=== PATIENT | male | born 1970 | race Caucasian/White ===

== ENCOUNTER 2024-03-15 10:06 | Emergency (ER) | payer MEDICARE, SELFPAY ==
[2024-03-15] VITALS (17 sets, daily range): BP systolic 130–187; BP diastolic 82–105; PULSE 79–117; TEMP 36.9; O2SAT 94–100; BMI 25.8
--- NOTE | 2024-03-15 10:26 | ECG_ITS ---
The [facility] Test Date: 2024-03-15 Pat Name: MARBELLA ANGELES Department: Room: - Gender: Male [employer]: : 1970 Requested By: [id number] Order Number: [id number] Reading MD: TALON VALLADARES Measurements Intervals [place] Rate: 90 P: 72 MO: 172 QRS: 74 QRSD: 100 T: 46 QT: 346 QTc: 394 Interpretive Statements 1100 Sinus rhythm 9110 normal ECG No previous ECG available for comparison Electronically Signed On 03-15-2024 20:21:03 EST by TALON VALLADARES
--- NOTE | 2024-03-15 10:26 | XR_ITS ---
The [address] [address] Patient Name: MARBELLA ANGELES MRN: [id number] date: 1970 Sex: M Assigned Patient Location: ER Current Patient Location: ED.MAIN Accession/Order Number: [id number] Exam Date: 03/15/2024 10:50 Report Date: 03/15/2024 11:46 At the request of: [facility] Procedure: XR chest 2V EXAMINATION: XR chest 2V HISTORY: CP , shortness of breath COMPARISON: No relevant comparison available. FINDINGS: LUNGS: No significant pulmonary parenchymal abnormalities. VASCULATURE: No increased pulmonary vasculature. PLEURA: No pneumothorax, effusion, or pleural thickening. CARDIAC: No cardiomegaly or cardiac silhouette abnormality. MEDIASTINUM: No visible mass or adenopathy. BONES: No fracture or visible bone lesion. OTHER: Negative. XR/XR chest 2V IMPRESSION: 1. No acute cardiopulmonary process. Electronically authenticated by: CARMEN COLEMAN Date: 03/15/2024 11:46
--- NOTE | 2024-03-15 10:29 | ED_ITS ---
HPI HPI - General Adult General Chief complaint: Chest Pain Stated complaint: FEVER, CHEST PAIN, R FLANK PAIN Time Seen by Provider: 03/15/24 10:26 Source: patient Mode of arrival: walk-in History of Present Illness HPI narrative: Patient is a 54-year-old male who is coming to the ER with multiple complaints. Patient has left and right sided chest pain and shortness for 2 weeks which has been fairly persistent. Patient also has a small rash to the right lateral chest wall this been there for 2 weeks. Patient has no nausea, vomiting. Patient states the pain is more to the right upper quadrant and midepigastric area. Patient has no cardiac history. Patient states his only significant medical history at this time is tobacco abuse. Patient has no acid reflux history. Patient states he smokes 1.5 packs of cigarettes a day. No alcohol use. Patient has history of opiate abuse, has been sober for over 900 days, he is on Suboxone. Patient has not had shingles before. Patient has no other acute complaints at this time. No recent traveling. No trauma. No recent heavy lifting twisting or turning at home. Patient states he is disabled. Patient has a dog at bedside with him that is barking/growling every time in the room performing HPI and physical exam or updating patient. All systems are negative except as noted/marked. All systems reviewed and otherwise negative. Nurses note and vital signs reviewed and patient is not hypoxic. General: The patient appears well and in no apparent distress. Patient is resting comfortably on cart. Patient is not toxic, lethargic, or listless lynda ent smells of cigarettes and tobacco products.. Skin: Warm, dry, no pallor noted. Patient has a small grayish colored rash that is tender to palpation to the right upper lateral chest wall, over ribs approximately 5-7. No other vesicles noted. See HPI for more description as well. No erythema, cellulitis. No other rashes noted. No petechiae, purpura. Patient has scars to the cervical spine and lumbar spine from previous surgeries. No acute findings, these are old surgical scars. Head: Normocephalic, atraumatic Eye: Normal conjunctiva, no drainage, EOMI. PERRL Ears, Nose, Mouth, and Throat: oral mucosa is moist. Nares patent. Mouth without vesicles. Cardiovascular: Regular Rate and Rhythm, no murmur, gallop, rub. Equal breath sounds bilateral, no crepitus. Respiratory: Patient is in no distress, no accessory muscle use, lungs are clear to auscultation, no wheezing, rales or rhonchi Back: non-tender, no CVA tenderness bilaterally to percussion. No CT LS midline pain GI: Mild to moderate right upper quadrant tenderness to palpation, mild midepigastric tenderness palpation, the patient has more severe pain to palpation over the rash that is not raised the right lateral chest wall. No abscess, no bullae, no obvious vesicles, no petechiae purpura, no mucous membrane involvement, no other rash noted but is moderate tenderness to palpation has been persistent for 2 weeks. No tenderness to palpation, no masses appreciated. No rebound, guarding, or rigidity noted. No distention Musculoskeletal: Patient has full range of motion of all of the extremities, no motor, sensory, or focal neurological deficits Neurological: A&O x4, normal speech Psychiatric: Cooperative Related Data Home Medications ?Medication ?Instructions ?Recorded ?Confirmed buprenorphine 12 mg-naloxone 3 mg 2 film buccal DAILY 03/15/24 03/15/24 sublingual film (Suboxone) duloxetine 20 mg capsule,delayed 40 mg PO DAILY 03/15/24 03/15/24 release (Cymbalta) prazosin 2 mg capsule 2 mg PO DAILY 03/15/24 03/15/24 Previous Rx's ?Medication ?Instructions ?Recorded gabapentin 100 mg capsule 100 mg PO Q8H PRN nerve pain 7 03/15/24 days #20 caps Allergies Allergy/AdvReac Type Severity Reaction Status Date / Time No Known Drug Allergies Allergy Verified 03/15/24 10:17 Opioid HPI Opioid Management Most Recent Opioid Data: Last Pain Scale 4 03/15/24 10:32 03/15/24 PFSH PFSH Social History Little interest or pleasure in doing things: not at all Feeling down, depressed, or hopeless: not at all Exam Constitutional Vital Signs, click to edit/add: Last Vital Signs Temp 98.4 F 03/15/24 10:11 Pulse 85 03/15/24 11:54 Resp 118 H 03/15/24 11:54 BP 140/82 03/15/24 11:54 Pulse Ox 98 03/15/24 11:54 O2 Del Method Room Air 03/15/24 10:11 Course Vital Signs Vital signs: Vital Signs Temperature 98.4 F 03/15/24 10:11 Pulse Rate 101 H 03/15/24 10:11 Respiratory Rate 18 03/15/24 10:11 Blood Pressure 187/95 H 03/15/24 10:11 Pulse Oximetry 100 03/15/24 10:11 Oxygen Delivery Method Room Air 03/15/24 10:11 Temperature 98.4 F 03/15/24 10:11 Pulse Rate 85 03/15/24 11:54 Respiratory Rate 118 H 03/15/24 11:54 Blood Pressure 140/82 03/15/24 11:54 Pulse Oximetry 98 03/15/24 11:54 Oxygen Delivery Method Room Air 03/15/24 10:11 Medical Decision Making MDM Narrative Medical decision making narrative: EKG interpretation. Normal sinus rhythm at 90 beats a minute. Normal axis deviation. Q waves throughout. QTc of 394. Patient chest x-ray, lab work showed no acute finding. Patient does have a small rash, grayish in color, not obvious vesicles or blisters to the right lateral chest wall, over ribs approximately 6-7. Patient's rash has been there for approximately 2 weeks. Patient does not have bandlike vesicles, redness, erythema or cellulitis around the anterior, lateral, posterior chest wall. However, patient's pain and symptoms were acting like herpes zoster or shingles. Patient has had symptoms for 2 weeks. Patient will be placed on gabapentin, he is out of the window for steroids or acyclovir. Patient is on Suboxone. Patient is also using [id number] combination Tylenol Motrin tablet. Patient has a follow-up with PCP for further outpatient testing as needed. Patient is relieved there is nothing significant acute that we can find on testing today, his symptoms have been the same for 2 weeks and he will follow-up with PCP Lab Data Labs: Lab Results 03/15/24 Range/Units 10:30 WBC 7.6 (4.0-11.0) 10^3/uL RBC 4.43 L (4.70-6.10) 10^6/uL Hgb 14.0 (14.0-18.0) g/dL Hct 40.7 L (42.0-54.0) % MCV 91.9 (80.0-94.0) fL MCH 31.6 (25.9-34.0) pg MCHC 34.4 (29.9-35.2) g/dL RDW 14.0 (11.0-15.0) % Plt Count 223 (150-450) 10^3/uL MPV 9.5 (9.5-13.5) fL Neut % (Auto) 52.6 (43.0-75.0) % Lymph % (Auto) 37.2 (20.5-60.0) % [place] % (Auto) 6.3 (1.7-12.0) % Eos % (Auto) 2.8 (0.9-7.0) % Baso % (Auto) 0.8 (0.2-2.0) % Neut # (Auto) 4.0 (1.4-6.5) 10^3/uL Lymph # (Auto) 2.8 (1.2-3.8) 10^3/uL [place] # (Auto) 0.5 (0.3-0.8) 10^3/uL Eos # (Auto) 0.2 (0.0-0.7) 10^3/uL Baso # (Auto) 0.1 (0.0-0.1) 10^3/uL Abs Immat Gran (auto) 0.02 (0.00-0.03) 10^3/uL Imm/Tot Granulo (auto) 0.3 (0.0-0.5) % Sodium 141 (136-145) mmol/L Potassium 4.4 (3.5-5.1) mmol/L Chloride 106 (98-107) mmol/L Carbon Dioxide 24.3 (21.0-32.0) mmol/L Anion Gap 15.1 BUN 8.0 (7.0-18.0) mg/dL Creatinine 1.11 (0.70-1.30) mg/dL Est GFR ( Amer) >60 (>=60 mL/min/1.73m^2) Est GFR (Non-Af Amer) >60 (>=60 mL/min/1.73m^2) BUN/Creatinine Ratio 7.2 Glucose 97 (74-106) mg/dL Calcium 8.5 (8.5-10.1) mg/dL Total Bilirubin 0.4 (0.2-1.0) mg/dL AST 19 (15-37) U/L ALT 15 L (16-63) U/L Alkaline Phosphatase 129 H (46-116) U/L Troponin I High Sens 6.0 (4.0-76.1) pg/mL NT-Pro-B Natriuret Pep 115.0 (<=900.0) pg/mL Total Protein 6.9 (6.4-8.2) g/dL Albumin 3.5 (3.4-5.0) g/dL Globulin 3.4 g/dL Albumin/Globulin Ratio 1.0 Discharge Plan Discharge Chief Complaint: Chest Pain Clinical Impression: Atypical chest pain Patient Disposition: Home, Self-Care Time of Disposition Decision: 11:57 Condition: Fair Prescriptions / Home Meds: New gabapentin 100 mg capsule 100 mg PO Q8H PRN (Reason: nerve pain) 7 Days Qty: 20 0RF No Action duloxetine [Cymbalta] 20 mg capsule,delayed release(DR/EC) 40 mg PO DAILY prazosin 2 mg capsule 2 mg PO DAILY buprenorphine-naloxone [Suboxone] 12-3 mg film 2 film buccal DAILY Rx Instructions: place 1 strip/tab under (each) side of tongue Print Language: [place] Instructions: Chest Pain (ED), Biliary Colic (ED), Shingles (ED) Additional Instructions: Education on shingles was done at bedside and on discharge paperwork for educational purposes. This may be one of your diagnoses and the etiology of your pain. Use gabapentin as needed for nerve pain. Follow-up with your PCP for further outpatient testing if needed including gallbladder ultrasound, HIDA scan, cardiac testing, or anything else that may be indicated. Continues in [id number] pain medication along with Suboxone to help with pain. Referrals: INES MAGDALENO [Primary Care Provider] - 1 week
[2024-03-15 10:38] LABS: Basophils Absolute Auto 0.1 10^3/uL (0.0-0.1); Basophils Percent Auto 0.8 % (0.2-2.0); Eosinophils Absolute Auto 0.2 10^3/uL (0.0-0.7); Eosinophils Percent Auto 2.8 % (0.9-7.0); Hematocrit 40.7 % (42.0-54.0); Immature Granulocytes Abs Auto 0.02 10^3/uL (0.00-0.03); Immature Granulocytes Pct Auto 0.3 % (0.0-0.5); Lymphocytes Absolute Auto 2.8 10^3/uL (1.2-3.8); Lymphocytes Percent Auto 37.2 % (20.5-60.0); Mean Corpuscular HGB Conc 34.4 g/dL (29.9-35.2); Mean Corpuscular Hemoglobin 31.6 pg (25.9-34.0); Mean Corpuscular Volume 91.9 fL (80.0-94.0); Mean Platelet Volume 9.5 fL (9.5-13.5); Monocytes Absolute Auto 0.5 10^3/uL (0.3-0.8); Monocytes Percent Auto 6.3 % (1.7-12.0); Neutrophils Percent Auto 52.6 % (43.0-75.0); Platelet Count 223 10^3/uL (150-450); Red Blood Count 4.43 10^6/uL (4.70-6.10); White Blood Count 7.6 10^3/uL (4.0-11.0)
[2024-03-15] MEDS: ASPIRIN 81 MG TAB.CHEW 162 MG PO (10:51)
[2024-03-15 11:01] LABS: Alanine Aminotransferase 15 U/L (16-63); Albumin Level 3.5 g/dL (3.4-5.0); Alkaline Phosphatase 129 U/L (46-116); Anion Gap 15.1; Aspartate Amino Transferase 19 U/L (15-37); BUN Creatinine Ratio 7.2; Bilirubin Total 0.4 mg/dL (0.2-1.0); Calcium 8.5 mg/dL (8.5-10.1); Carbon Dioxide 24.3 mmol/L (21.0-32.0); Chloride 106 mmol/L (98-107); Estimated GFR (African America >60 (>=60 mL/min/1.73m^2); Estimated GFR (Non-African Ame >60 (>=60 mL/min/1.73m^2); Globulin 3.4 g/dL; Glucose 97 mg/dL (74-106); Potassium 4.4 mmol/L (3.5-5.1); Sodium 141 mmol/L (136-145); Total Protein 6.9 g/dL (6.4-8.2)
== END 2024-03-15 12:12 | disposition home or self-care (01) ==
PROVIDERS: Emergency Provider Emergency Medicine; PCP Internal Medicine
DX: R07.89 Other chest pain (principal); R06.02 Shortness of breath; F17.210 Nicotine dependence, cigarettes, uncomplicated; F11.11 Opioid abuse, in remission; R21 Rash and other nonspecific skin eruption
CPT/HCPCS: 36415; 71046; 80053; 83880; 84484; 85025; 93005; 99285

== ENCOUNTER 2024-07-17 15:16 | Emergency (ER) | payer MEDICARE, SELFPAY ==
--- OUTSIDE RECORDS SUMMARY | 2024-07-17 15:27 | XMS_ITS | CCD ---
Author Organization [facility] Care Team Providers Care Convention Services Manager Name Role Phone Sinan Sewell Primary Care Unavailable Moi Quitnero Attending Unavailable Moi Quintero Admitting Unavailable DO Sinan Sewell Primary Care Provider JULIO Quintero Emergency Provider Medications Current Medications Medication Drug Class(es) Dates Sig (Normalized) Sig (Original) buprenorphine 8 mg / naloxone 2 mg sublingual tablet (1 source) Partial Opioid Agonist, Opioid Antagonist Start: 04-03-2023 take 1 tablet under the tongue once daily Buprenorphine-Na loxone (Suboxone) 8-2 mg Tablet, Sublingual Active 3 TAB SUBLINGUAL Daily April 03, 2023 12:00am DULoxetine 20 mg delayed release oral capsule (1 source) Serotonin and Norepinephrine Reuptake Inhibitor Start: 04-03-2023 take 2 capsules by mouth once daily Duloxetine (Cymbalta) 20 mg Capsule,Delayed Release(Dr/Ec) Active 40 MG PO Daily April 03, 2023 12:00am prazosin 2 mg oral capsule (1 source) alpha-Adrenergic [place] Start: 04-03-2023 take 4 mg by mouth once daily at bedtime Prazosin Active 4 MG PO Daily at bedtime April 03, 2023 12:00am Problems Problem Classification Problem Date Documented Da te Episodic/Chronic Nonspecific chest pain (1 source) Chest pain, unspecified; Translations: [Chest pain, unspecified] Onset: 04-03-2023 Episodic Results Test Name Value Interpretation Reference Range Facility Activated partial thrombopla stin time (aPTT) in platelet poor plasma by coagulation aOrdered By: Moi Quintero on 04-03-2023 aPTT Coag (PPP) [Time] 34.4 s 25.1-36.5 [facility] Comment on above: A hematocrit value g reater than 55% may lead to inaccurate results in coagulation testing. Patients having hematocrit values >55% require a special collection tube for coagulation studies. Please contact the laboratory at [phone] for redraw instructions. B-Type Natriuretic Peptideon 04-03-2023 Natriuretic peptide B (Bld) [Mass/Vol] 5.0 pg/mL Normal 5-100 [facility] Comment on above: Result Comment: PERF ORMED BY: [place] [address] PATHOLOGIST A AND P MECHANIC DAMARI LIMA M.D. Performed By: #### H S TROP, CBC, PT, CK, BMP, PTT, BNP #### [address] Basic Metabolic Panelon 03-20 Anion gap [Moles/Vol] 9.4 mmol/L Normal 6.0-15.0 [facility] Comment on above: Performed By: #### H S TROP, CBC, PT, CK, BMP, PTT, BNP #### [address] Calcium [Mass/Vol] 9.0 mg/dL Normal 8.6-10.3 [facility] Comment on above: Performed By: #### H S TROP, CBC, PT, CK, BMP, PTT, BNP #### [address] Chloride [Moles/Vol] 104 mmol/L Normal 98-107 [facility] Comment on above: Performed By: #### H S TROP, CBC, PT, CK, BMP, PTT, BNP #### [address] CO2 [Moles/Vol] 30.6 mmol/L Normal 21.0-31.0 [facility] Comment on above: Performed By: #### H S TROP, CBC, PT, CK, BMP, PTT, BNP #### [address] Creatinine [Mass/Vol] 0.98 mg/dL Normal 0.70-1.30 [facility] Comment on above: Performed By: #### H S TROP, CBC, PT, CK, BMP, PTT, BNP #### [address] Creatinine Clr Calc Pharmacy 91.04 [facility] Comment on above: Result Comment: PERF ORMED BY: [place] [address] PATHOLOGIST A AND P MECHANIC DAMARI LIMA M.D. Performed By: #### H S TROP, CBC, PT, CK, BMP, PTT, BNP #### [address] GFR/1.73 sq M.predicted MDRD (S/P/Bld) [Vol rate/Area] mL/min/{1.73_m2} [facility] Comment on above: Performed By: #### H S TROP, CBC, PT, CK, BMP, PTT, BNP #### [address] Glucose [Mass/Vol] 104 mg/dL High 70-100 [facility] Comment on above: Result Comment: [facility] Glucose Reference Range is dependent on time and content of last meal. Glucose of more than 200 mg/dL in a nonstressed, ambulatory subject supports the diagnosis of Diabetes Mellitus. ADA recommended reference range Performed By: #### H S TROP, CBC, PT, CK, BMP, PTT, BNP #### [address] Potassium [Moles/Vol] 4.0 mmol/L Normal 3.5-5.1 [facility] Comment on above: Performed By: #### H S TROP, CBC, PT, CK, BMP, PTT, BNP #### [address] Sodium [Moles/Vol] 140 mmol/L Normal 136-145 [facility] Comment on above: Performed By: #### H S TROP, CBC, PT, CK, BMP, PTT, BNP #### [place] [address] [place] Urea nitrogen [Mass/Vol] 8 mg/dL Normal 7-25 [facility] Comment on above: Performed By: #### H S TROP, CBC, PT, CK, BMP, PTT, BNP #### [facility] [address] Basophils Auto (Bld) [#/Vol] Ordered By: Moi Quintero on 04-03-2023 Basophils (Bld) [#/Vol] 0.1 10*3/uL 0.0-0.2 [facility] Basophils/100 WBC Auto (Bld) Ordered By: Moi Quintero on 04-03-2023 Basophils/100 WBC (Bld) 0.8 % . [facility] Calcium [Mass/volume] in Ser um or PlasmaOrdered By: Moi Quintero on 04-03-2023 Calcium [Mass/Vol] 9.0 mg/dL 8.6-10.3 [facility] Carbon dioxide, total [Moles /volume] in Serum or PlasmaOrdered By: Moi Quintero on 04-03-2023 CO2 [Moles/Vol] 30.6 mmol/L 21.0-31.0 [facility] Chloride [Moles/volume] in S yohannes or PlasmaOrdered By: Moi Quintero on 04-03-2023 Chloride [Moles/Vol] 104 mmol/L 98-107 [facility] Complete Blood Count Auto Di ffon 04-03-2023 Basophils (Bld) [#/Vol] 0.1 10*3/uL Normal 0.0-0.2 [facility] Comment on above: Result Comment: PERF ORMED BY: [place] [address] PATHOLOGIST A AND P MECHANIC DAMARI LIMA M.D. Performed By: #### H S TROP, CBC, PT, CK, BMP, PTT, BNP #### [facility] [address] Basophils/100 WBC (Bld) 0.8 % Normal . [facility] Comment on above: Performed By: #### H S TROP, CBC, PT, CK, BMP, PTT, BNP #### [address] Eosinophils (Bld) [#/Vol] 0.2 10*3/uL Normal 0.0-0.45 [facility] Comment on above: Performed By: #### H S TROP, CBC, PT, CK, BMP, PTT, BNP #### [address] Eosinophils/100 WBC (Bld) 1.8 % Normal . [facility] Comment on above: Performed By: #### H S TROP, CBC, PT, CK, BMP, PTT, BNP #### [address] Erythrocyte distribution width (RBC) [Ratio] 14.5 % Normal 12.0-14.8 [facility] Comment on above: Performed By: #### H S TROP, CBC, PT, CK, BMP, PTT, BNP #### [address] Hematocrit (Bld) [Volume fraction] 41.7 % Normal 38.8-50.0 [facility] Comment on above: Performed By: #### H S TROP, CBC, PT, CK, BMP, PTT, BNP #### [address] Hemoglobin (Bld) [Mass/Vol] 14.0 g/dL Normal 13.0-17.0 [facility] Comment on above: Performed By: #### H S TROP, CBC, PT, CK, BMP, PTT, BNP #### [address] Lymphocytes (Bld) [#/Vol] 2.9 10*3/uL Normal 1.00-4.8 [facility] Comment on above: Performed By: #### H S TROP, CBC, PT, CK, BMP, PTT, BNP #### [address] Lymphocytes/100 WBC (Bld) 32.4 % Normal . [facility] Comment on above: Performed By: #### H S TROP, CBC, PT, CK, BMP, PTT, BNP #### [address] MCH (RBC) [Entitic mass] 29.3 pg Normal 27.5-35.2 [facility] Comment on above: Performed By: #### H S TROP, CBC, PT, CK, BMP, PTT, BNP #### [address] MCV (RBC) [Entitic vol] 87.6 fL Normal 83.5-101 [facility] Comment on above: Performed By: #### H S TROP, CBC, PT, CK, BMP, PTT, BNP #### [address] Mean Corpuscular HGB Conc 33.5 g/dL Normal 32.5-35.6 [facility] Comment on above: Performed By: #### H S TROP, CBC, PT, CK, BMP, PTT, BNP #### [address] Monocytes (Bld) [#/Vol] 0.6 10*3/uL Normal 0.0-0.8 [facility] Comment on above: Performed By: #### H S TROP, CBC, PT, CK, BMP, PTT, BNP #### [address] Monocytes/100 WBC (Bld) 17.01 % Normal 0.00-20.00 [facility] Comment on above: Performed By: #### H S TROP, CBC, PT, CK, BMP, PTT, BNP #### [address] Monocytes/100 WBC (Bld) 6.6 % Normal . [facility] Comment on above: Performed By: #### H S TROP, CBC, PT, CK, BMP, PTT, BNP #### [address] Neutrophils (Bld) [#/Vol] 5.2 10*3/uL Normal 1.8-7.7 [facility] Comment on above: Performed By: #### H S TROP, CBC, PT, CK, BMP, PTT, BNP #### [address] Neutrophils/100 WBC (Bld) 58.4 % Normal . [facility] Comment on above: Performed By: #### H S TROP, CBC, PT, CK, BMP, PTT, BNP #### [address] NRBC% 0.1 /100{WBC} Normal 0-0.5 [facility] Comment on above: Performed By: #### H S TROP, CBC, PT, CK, BMP, PTT, BNP #### [address] Platelet mean volume (Bld) [Entitic vol] 8.5 fL Normal 6.6-10.1 [facility] Comment on above: Performed By: #### H S TROP, CBC, PT, CK, BMP, PTT, BNP #### [address] Platelets (Bld) [#/Vol] 205 10*3/uL Normal 150-450 [facility] Comment on above: Performed By: #### H S TROP, CBC, PT, CK, BMP, PTT, BNP #### [address] RBC (Bld) [#/Vol] 4.76 10*6/uL Normal 3.90-5.60 [facility] Comment on above: Performed By: #### H S TROP, CBC, PT, CK, BMP, PTT, BNP #### [address] WBC (Bld) [#/Vol] 8.9 10*3/uL Normal 4.1-10.5 [facility] Comment on above: Performed By: #### H S TROP, CBC, PT, CK, BMP, PTT, BNP #### [address] Creatine Kinaseon 04-03-2023 CK [Catalytic activity/Vol] 228 U/L High 30-223 [facility] Comment on above: Performed By: #### H S TROP, CBC, PT, CK, BMP, PTT, BNP #### [facility] [address] [place] [address] Creatine kinase [Enzymatic a ctivity/volume] in Serum or PlasmaOrdered By: Moioliver Quintero on 04-03-2023 CK [Catalytic activity/Vol] 228 U/L [facility] Creatinine [Mass/volume] in Serum or PlasmaOrdered By: Moi Quintero on 04-03-2023 Creatinine [Mass/Vol] 0.98 mg/dL 0.70-1.30 [facility] D-Dimer High Sensitivityon 1 06-04-2022 D-Dimer High Sensitivity < 200 Normal 0-243 [facility] Comment on above: Result Comment: The reference range for D-dimer is <243 ng/mL D-dimer units. D-dimer results must be used in conjunction with a clinical pretest probability (PTP) assessment model for deep vein thrombosis (DVT) and pulmonary embolism (PE). Results <230 ng/mL d-dimer units can be used as a negative predictor in patients with low or moderate probability for DVT/PE. Results above the exclusion threshold of 230 ng/ml D-dimer units for DVT/PE may indicate the need for further diagnostic testing. D-Dimer can be increased in hospitalized patients due to co-morbid conditions. A hematocrit value greater than 55% may lead to inaccurate results in coagulation testing. Patients having hematocrit values >55% require a special collection tube for coagulation studies. Please contact the laboratory at [phone] for redraw instructions. PERFORMED BY: [place] [address] PATHOLOGIST A [employer] P MECHANIC DAMARI LIMA M.D. Performed By: #### D DIMER #### [facility] [address] [place], [place] [id number] [place] ECG 12 lead ECGon 04-03-2023 ECG 12 lead ECG [facility] Main [place] [address] [place] [address] Electrocardiograph Report Signed Patient: Candido Brown MR#: [id number] : 1970 Acct:[id number] Age/Sex: 53 / M ADM Date: 04/03/23 Loc: ER Room: Type: [facility] ER Attending Dr: Ordering Provider: Moi Quintero PA-C Date of Service: 04/03/23 ECG/ECG 12 lead ECG: Chest Pain Copies to: Test Reason : Blood Pressure : / mmHG Vent. Rate : 110 BPM Atrial Rate : 110 BPM P-R Int : 152 ms QRS Dur : 098 ms QT Int : 332 ms P-R-T Axes : 079 072 069 degrees QTc Int : 449 ms Sinus tachycardia Confirmed by Joseph GAN DO ([id number]) on 04/03/2023 3:48:06 PM Referred By: Electronically Signed By:Joseph GAN DO Transcribed By: MUS Signed By Joseph Gan DO 1 06/04/22 1548 [facility] ECG 12 lead ECG [facility] [place] [address] Electrocardiograph Report Signed Patient: Candido Brown MR#: [id number] : 1970 Acct:[id number] Age/Sex: 53 / M ADM Date: 04/03/23 Loc: ER Room: Type: [facility] ER Attending Dr: Ordering Provider: Moi Quintero PA-C Date of Service: 04/03/23 ECG/ECG 12 lead ECG: Chest Pain Copies to: Test Reason : Blood Pressure : / mmHG Vent. Rate : 110 BPM Atrial Rate : 110 BPM P-R Int : 152 ms QRS Dur : 098 ms QT Int : 332 ms P-R-T Axes : 079 072 069 degrees QTc Int : 449 ms Sinus tachycardia Confirmed by Joseph GAN DO ([id number]) on 04/03/2023 3:48:06 PM Referred By: Electronically Signed By:Joseph GAN DO Transcribed By: MUS Signed By Joseph Gan DO 1 06/04/22 1548 [facility] Eosinophils Auto (Bld) [#/Vo l]Ordered By: Moi Quintero on 04-03-2023 Eosinophils (Bld) [#/Vol] 0.2 10*3/uL 0.0-0.45 [facility] Eosinophils/100 WBC Auto (Bl d)Ordered By: Moi Quintero on 04-03-2023 Eosinophils/100 WBC (Bld) 1.8 % . [facility] Erythrocyte distribution wid th Auto (RBC) [Ratio]Ordered By: Moi Quintero on 04-03-2023 Erythrocyte distribution width (RBC) [Ratio] 14.5 % 12.0-14.8 [facility] Fibrin D-dimer [Presence] in Platelet poor plasma by Latex agglutinationOrdered By: Moi Quintero on 04-03-2023 Fibrin D-dimer LA Ql (PPP) < 200 ng/mL 0-243 [facility] Comment on above: The reference range for D-dimer is <243 ng/mL D-dimer units.D-dimer results must be used in conjunction with a clinicalpretest probability (PTP) assessment model for deep veinthrombosis (DVT) and pulmonary embolism (PE). Results <230ng/mL d-dimer units can be used as a negative predictor inpatients with low or moderate probability for DVT/PE.Results above the exclusion threshold of 230 ng/ml D-dimerunits for DVT/PE may indicate the need for furtherdiagnostic testing.D-Dimer can be increased in hospitalized patients due toco-morbid conditions.A hematocrit value greater than 55% may lead to inaccurate results in coagulation testing. Patients having hematocrit values >55% require a special collection tube for coagulation studies. Please contact the laboratory at [phone] for redraw instructions. Glucose [Mass/volume] in Ser um or PlasmaOrdered By: Moi Quintero on 04-03-2023 Glucose [Mass/Vol] 104 mg/dL 70-100 [facility] Comment on above: ADA recommended refe rence rangeRandom Glucose Reference Range is dependent on time and content of last meal. Glucose of more than 200 mg/dL in a nonstressed, ambulatory subject supports the diagnosis of Diabetes Mellitus. Hematocrit Auto (Bld) [Volum e fraction]Ordered By: Moi Quintero on 04-03-2023 Hematocrit (Bld) [Volume fraction] 41.7 % 38.8-50.0 [facility] Hemoglobin [Mass/volume] in BloodOrdered By: Moi Quintero on 04-03-2023 Hemoglobin (Bld) [Mass/Vol] 14.0 g/dL 13.0-17.0 [facility] INR in Platelet poor plasma by Coagulation assayOrdered By: Moi Quintero on 04-03-2023 INR Coag (PPP) [Relative time] 1.1 {INR} [facility] Comment on above: INR Therapeutic Rang e A) Pre- and Peroperative OAT started two weeks before surgery. NOT HIP SURGERY: 1.5 - 2.5 HIP SURGERY: 2 - 3B) Primary and secondary prevention of venous THROMBOSIS: 2 - 3C) Active venous thrombosis, pulmonary embolismand prevention of recurrent venous thrombosis: 2 - 3D) Prevention of arterial thromboembolismincluding patients with mechanical heart valves: 3 - 4.5 Leukocytes [#/volume] correc peyman for nucleated erythrocytes in Blood by Automated counOrdered By: Moi Quintero on 04-03-2023 WBC corrected for nucl RBC Auto (Bld) [#/Vol] 8.9 10*3/uL 4.1-10.5 [facility] Lymphocytes Auto (Bld) [#/Vo l]Ordered By: Moi Quintero on 04-03-2023 Lymphocytes (Bld) [#/Vol] 2.9 10*3/uL 1.00-4.8 [facility] Lymphocytes/100 WBC Auto (Bl d)Ordered By: Moi Quintero on 04-03-2023 Lymphocytes/100 WBC (Bld) 32.4 % . [facility] MCH Auto (RBC) [Entitic mass ]Ordered By: Moi Quintero on 04-03-2023 MCH (RBC) [Entitic mass] 29.3 pg 27.5-35.2 [facility] MCHC Auto (RBC) [Mass/Vol]Or dered By: Moi Quintero on 04-03-2023 MCHC (RBC) [Mass/Vol] 33.5 g/dL 32.5-35.6 [facility] MCV Auto (RBC) [Entitic vol] Ordered By: Moi Quintero on 04-03-2023 MCV (RBC) [Entitic vol] 87.6 fL 83.5-101 [facility] Monocyte distribution width [Entitic volume] in Blood by AutomatedOrdered By: Moi Quintero on 04-03-2023 Monocyte distribution width Auto (Bld) [Entitic vol] 17.01 % 0.00-20.00 [facility] Monocytes Auto (Bld) [#/Vol] Ordered By: Moi Quintero on 04-03-2023 Monocytes (Bld) [#/Vol] 0.6 10*3/uL 0.0-0.8 [facility] Monocytes/100 WBC Auto (Bld) Ordered By: Moi Quintero on 04-03-2023 Monocytes/100 WBC (Bld) 6.6 % . [facility] Natriuretic peptide B [Mass/ Vol]Ordered By: Moi Quintero on 04-03-2023 Natriuretic peptide B (Bld) [Mass/Vol] 5.0 pg/mL 5-100 [facility] Neutrophils Auto (Bld) [#/Vo l]Ordered By: Moi Quintero on 04-03-2023 Neutrophils (Bld) [#/Vol] 5.2 10*3/uL 1.8-7.7 [facility] Neutrophils/100 WBC Auto (Bl d)Ordered By: Moi Quintero on 04-03-2023 Neutrophils/100 WBC (Bld) 58.4 % . [facility] No Panel InformationOrdered By: Moi Quintero on 04-03-2023 Estimated GFR (CKD-EPI) > 60.0 mL/Min [facility] Creatinine Clearance (Chem 91.04 [facility] Nucleated erythrocytes [Pres ence] in Blood by Automated countOrdered By: Moi Quintero on 04-03-2023 Nucleated RBC Auto Ql (Bld) 0.1 /100{WBC} 0-0.5 [facility] Partial Thromboplastin Timeo n 04-03-2023 aPTT Coag (Bld) [Time] 34.4 s Normal 25.1-36.5 [facility] Comment on above: Result Comment: A he matocrit value greater than 55% may lead to inaccurate results in coagulation testing. Patients having hematocrit values >55% require a special collection tube for coagulation studies. Please contact the laboratory at [phone] for redraw instructions. PERFORMED BY: [place] [address] [place] [address] PATHOLOGIST A [employer] P MECHANIC DAMARI LIMA M.D. Performed By: #### H S TROP, CBC, PT, CK, BMP, PTT, BNP #### [facility] [address] [place] [address] [place] Platelet mean volume Auto (B ld) [Entitic vol]Ordered By: Moi Quintero on 04-03-2023 Platelet mean volume (Bld) [Entitic vol] 8.5 fL 6.6-10.1 [facility] Platelets Auto (Bld) [#/Vol] Ordered By: Moi Quintero on 04-03-2023 Platelets (Bld) [#/Vol] 205 10*3/uL 150-450 [facility] Potassium [Moles/volume] in Serum or PlasmaOrdered By: Moi Quintero on 04-03-2023 Potassium [Moles/Vol] 4.0 mmol/L 3.5-5.1 [facility] Prothrombin Time INRon 04-03 INR Coag (PPP) [Relative time] 1.1 {INR} Normal [facility] Comment on above: Result Comment: INR Therapeutic Range A) Pre- and Peroperative OAT started two weeks before surgery. NOT HIP SURGERY: 1.5 - 2.5 HIP SURGERY: 2 - 3 B) Primary and secondary prevention of venous THROMBOSIS: 2 - 3 C) Active venous thrombosis, pulmonary embolism and prevention of recurrent venous thrombosis: 2 - 3 D) Prevention of arterial thromboembolism including patients with mechanical heart valves: 3 - 4.5 Performed By: #### H S TROP, CBC, PT, CK, BMP, PTT, BNP #### [facility] [address] [place] [id number] [place] PT Coag (PPP) [Time] 12.6 s Normal 9.0-12.9 [facility] Comment on above: Result Comment: A he matocrit value greater than 55% may lead to inaccurate results in coagulation testing. Patients having hematocrit values >55% require a special collection tube for coagulation studies. Please contact the laboratory at [phone] for redraw instructions. Performed By: #### H S TROP, CBC, PT, CK, BMP, PTT, BNP #### [facility] [address] [place] [id number] [place] Prothrombin time (PT)Ordered By: Moi Quintero on 04-03-2023 PT Coag (PPP) [Time] 12.6 s 9.0-12.9 [facility] Comment on above: A hematocrit value g reater than 55% may lead to inaccurate results in coagulation testing. Patients having hematocrit values >55% require a special collection tube for coagulation studies. Please contact the laboratory at [phone] for redraw instructions. RBC Auto (Bld) [#/Vol]Ordere d By: Moi Quintero on 04-03-2023 RBC (Bld) [#/Vol] 4.76 10*6/uL 3.90-5.60 [facility] Serum or plasma anion gap de terminationOrdered By: Moi Quintero on 04-03-2023 Anion gap [Moles/Vol] 9.4 mmol/L 6.0-15.0 [facility] Sodium [Moles/volume] in Ser um or PlasmaOrdered By: Moi Quintero on 04-03-2023 Sodium [Moles/Vol] 140 mmol/L 136-145 [facility] Troponin I High Sensitivityo n 04-03-2023 Troponin I High Sensitivity 3.0 pg/mL Normal 0.0-20.0 [facility] Comment on above: Result Comment: PERF ORMED BY: [place] [address] PATHOLOGIST A AND P MECHANIC DAMARI LIMA M.D. Performed By: #### H S TROP, CBC, PT, CK, BMP, PTT, BNP #### [facility] [address] [place] [address] Troponin I.cardiac [Mass/vol ume] in Serum or Plasma by Detection limit <= 0.01 ng/Ordered By: Moi Quintero on 04-03-2023 Troponin I.cardiac DL <= 0.01 ng/mL [Mass/Vol] 3.0 pg/mL 0.0-20.0 [facility] Urea nitrogen [Mass/volume] in Serum or PlasmaOrdered By: Moi Quintero on 04-03-2023 Urea nitrogen [Mass/Vol] 8 mg/dL 7-25 [facility] WBC Auto (Bld) [#/Vol]Ordere d By: Moi Quintero on 04-03-2023 WBC (Bld) [#/Vol] 8.9 10*3/uL 4.1-10.5 [facility] XR chest 2V*on 04-03-2023 XR chest 2V* [facility] Main [address] [address] XRay Report Signed Patient: Candido Brown MR#: [id number] : 1970 Acct:[id number] Age/Sex: 53 / M ADM Date: 04/03/23 Loc: ER Room: Type: [facility] ER Attending Dr: Copies to: Moi Quintero PA-C Ordering Provider: Moi Quintero PA-C Date of Service: 04/03/23 XR/XR chest 2V*: Chest Pain Chest 2 views CLINICAL HISTORY: Chest pain for one week. COMPARISON: None FINDINGS: Heart normal size. Lungs are clear. No free air. XR/XR chest 2V* IMPRESSION: NO ACUTE CARDIOPULMONARY ABNORMALITY. Impression dictated by: Milo Charles Jr., D.O.04/03/2023 3:24 PM Dictation Location: [place] [address] Transcribed By: [facility] 04/03/23 1524 Dictated By: Milo Charles Jr, DO 04/03/23 1524 Signed By: 04/03/23 1524 [facility] XR chest 2V* [facility] Main [place] [id number] XRay Report Signed Patient: Candido Brown MR#: [id number] : 1970 Acct:[id number] Age/Sex: 53 / M ADM Date: 04/03/23 Loc: ER Room: Type: [facility] ER Attending Dr: Copies to: Moi Quintero PA-C Ordering Provider: Moi Quintero PA-C Date of Service: 04/03/23 XR/XR chest 2V*: Chest Pain Chest 2 views CLINICAL HISTORY: Chest pain for one week. COMPARISON: None FINDINGS: Heart normal size. Lungs are clear. No free air. XR/XR chest 2V* IMPRESSION: NO ACUTE CARDIOPULMONARY ABNORMALITY. Impression dictated by: Milo Charles Jr., D.O.04/03/2023 3:24 PM Dictation Location: [place] [address] Transcribed By: [facility] 04/03/23 1524 Dictated By: Milo Charles Jr, DO 04/03/23 1524 Signed By: 04/03/23 1524 Normal [facility] Vital Signs Date Time Vital Sign Value Performing Clinician Hemal villanueva 04-03-2023 14:35-0500 Heart rate 101 /min DO Sinan Sewell Work Phone: [facility] 04-03-2023 14:35-0500 Respiratory rate 18 /min DO Sinan Sewell Work Phone: [facility] 04-03-2023 14:35-0500 SaO2% (BldA) [Mass fraction] 94 % DO Sinan Sewell Work Phone: [facility] 04-03-2023 14:14-0500 Body height 177.8 cm DO Sinan Sewell Work Phone: [facility] 04-03-2023 14:14-0500 Body temperature 97.9 [degF] DO Sinan Sewell Work Phone: [facility] 04-03-2023 14:14-0500 Body weight 83.65 kg DO Sinan Sewell Work Phone: [facility] 04-03-2023 14:14-0500 Diastolic blood pressure 66 mm[Hg] DO Sinan Sewell Work Phone: [facility] 04-03-2023 14:14-0500 Systolic blood pressure 128 mm[Hg] DO Sinan Sewell Work Phone: [facility] Encounters Encounter Date Encounter Type Care Provider Facility Start: 04-03-2023 End: 04-03-2023 Emergency department patient visit Sinan Sewell Facility:[facility] Start: 04-03-2023 End: 04-03-2023 Emergency department patient visit DO Sinan Sewell Work Phone: [facility] Work Phone: Procedures Date Procedure Procedure Detail Performing Clinician Start: 04-03-2023 Plain chest X-ray DO Natan Sewell Work Phone: Plan of Treatment Date Care Activity Detail Author Start: 04-03-2023 [facility] Patient referral [facility] Work Phone: Payers Date Payer Category Payer Private Health Insurance [id number] 2023 Self-pay Unknown [id number] Unknown [id number] Social History Date Type Detail Facility Start: 04-03-2023 Tobacco smoking stat [facility] Smoker (finding) [facility] Start: 1970 Sex Assigned At Male F [facility] Evaluation note Note Date & Type Note Facility Evaluation note No assessment information availa ble [facility] Work Phone: Summary Purpose Family History No Family History Records FoundNo Family History Records Found Advance Directives No Advanced Directives Records Found Advance Directive Response Recorded Date/ Time Advance Directives No March 2:47pm Chief Complaint and Reason for Visit Chief Complaint chest pain Additional Source Comments (unrecognized sect ion and content) No Status Records FoundNo Status Records Found INFORMATION SOURCE (unrecogn ized section and content) DATE CREATED AUTHOR 04/05/2023 [facility] DATE CREATED AUTHOR AUTHOR'S ORGANIZ ATION 04/15/2023 [facility] Care Teams (unrecognized sec tion and content) Team Status: Active Member Role Status Dates Sinan Sewell DO Primary Care Provider Active Team Status: Inactive Member Role Status Dates Sinan Sewell DO Primary Care Provider Active Moi Quintero PA-C Emergency Provider Active Goals (unrecognized section and content) Goals may be documented in a n alternate section FOR RECORDS PERTAINING TO PATIENTS WHO ARE OR HAVE BEEN ENROLLED IN A CHEMICAL DEPENDENCY/SUBSTANCEABUSE PROGRAM, SOME INFORMATION MAY BE OMITTED. This clinical summary was aggregated from multiple sources. Caution should be exercised in using it in the provision of clinical care. This summary normalizes information from multiple sources, and as a consequence, information in this document may materially change the coding, format and clinical context of patient data. In addition, data may be omitted in some cases. CLINICAL DECISIONS SHOULD BE BASED ON THE PRIMARY CLINICAL RECORDS. [facility], [facility]. provides no warranty or guarantee of the accuracy or completeness of information in this document.
[2024-07-17 15:28] VITALS: BP 164/95; PULSE 76; TEMP 36.7; O2SAT 97; BMI 25.1
--- NOTE | 2024-07-17 15:38 | ED_ITS ---
HPI - URI/Sore Throat General Chief Complaint: Upper Respiratory Infection Stated Complaint: sob Time Seen by Provider: 07/17/24 15:16 Source: patient History of Present Illness HPI Narrative: Patient is a for a 54-year-old male with a history of asthma/COPD who presents with concerns of shortness of breath and cough. Patient states he developed cough and congestion on Thursday this past week symptoms progressing through the weekend now producing green phlegm. He reports subjective fevers. States he did not take his temperature. He has not on oxygen at home but is out of his albuterol inhaler and nebulizer medication. He reports having his machine and tubing at home. He admits to smoking 1.5 packs/day and acknowledges that he needs to quit. He denies any chest pain. Patient notes the cough and wheezing but can still be active without severe symptoms. He has a dog with him at bedside. He appears in no distress speaking in full sentences. I know it will get bad if I do not start my treatment. MD elicited complaint: Reports cough and nasal congestion Pertinent past history: Reports COPD Onset (ago): day(s) ( ) Consistency: Reports constant Severity: mild Able to tolerate fluids by mouth: Yes Exacerbating factors: Reports other (Coughing, denies pleuritic pain.) Relieving factors: Reports nothing Associated symptoms: Reports fever, nasal congestion, cough and shortness of breath; Denies stiff neck, chest pain, abdominal pain, nausea, vomiting or diarrhea Related Data Home Medications ?Medication ?Instructions ?Recorded ?Confirmed buprenorphine 12 mg-naloxone 3 mg 2 film buccal DAILY 03/15/24 07/17/24 sublingual film (Suboxone) duloxetine 20 mg capsule,delayed 40 mg PO DAILY 03/15/24 07/17/24 release (Cymbalta) prazosin 2 mg capsule 2 mg PO DAILY 03/15/24 07/17/24 Previous Rx's ?Medication ?Instructions ?Recorded albuterol sulfate 2.5 mg/3 mL 2.5 mg (3 mL) inhalation TID-QID 07/17/24 (0.083 %) solution for nebulization PRN shortness of breath or wheezing #75 mL albuterol sulfate 90 mcg/actuation 2 inh inhalation Q6H PRN shortness 07/17/24 aerosol inhaler of breath or wheezing #6.7 grams benzonatate 200 mg capsule 200 mg PO TID PRN cough #15 caps 07/17/24 doxycycline hyclate 100 mg capsule 100 mg PO BID 10 days #20 caps 07/17/24 prednisone 20 mg tablet 40 mg (2 x 20 mg) PO ONCE 5 days 07/17/24 #10 tabs Allergies Allergy/AdvReac Type Severity Reaction Status Date / Time No Known Drug Allergies Allergy Verified 03/15/24 10:17 Review of Systems ROS Constitutional Reports: fever; Denies: chills Ears, nose, mouth, and throat Reports: nasal congestion; Denies: throat pain, neck pain or throat swelling Cardiovascular Denies: chest pain, palpitations, edema or swelling of fee t/ankles Respiratory Reports: shortness of breath, cough and wheezing Gastrointestinal Denies: abdominal pain, nausea, vomiting or difficulty swallowing Genitourinary Denies: painful urination Musculoskeletal Denies: back pain, neck pain, extremity pain or extremity swelling Integumentary/Breast Denies: rash, itching, redness or skin pain Neurological Denies: headache Psychiatric Denies: anxiety or mood swings Hematologic/Lymphatic Denies: easy bruising PFSH PFSH Social History Little interest or pleasure in doing things: not at all Feeling down, depressed, or hopeless: not at all Exam Narrative Exam Narrative: Nurses notes and vital signs reviewed and patient is not hypoxic. General: The patient appears well and in no apparent distress. Patient is resting comfortably on cart. Patient speaking in full sentences Skin: Warm, dry, no pallor noted. No evidence of rash Head: Normocephalic, atraumatic Neck: Supple, trachea mid-line, no tenderness, no lymphadenopathy Eye: Pupils are equal, round and reactive to light, EOMI Ears, Nose, Mouth, and Throat: External exam unremarkable, TMs are clear no auricle or tragal tenderness. Minimal postnasal drainage. No pharyngeal erythema or lesions in the mouth. Cardiovascular: Regular Rate and Rhythm Respiratory: Patient is in no distress, no accessory muscle use, speaking in full sentences diffuse expiratory wheezing noted, slight rhonchi in the lower lobe. Cough noted at bedside. Chest Wall: no tenderness, denies pleuritic pain Back: non-tender, no CVA tenderness Musculoskeletal: normal ROM, no tenderness, no swelling GI: Normal bowel sounds, no tenderness to palpation, no masses appreciated. No rebound, guarding, or rigidity noted. Neurological: A&O x4 Psychiatric: Cooperative Constitutional Vital Signs, click to edit/add: Last Vital Signs Temp 98.0 F 07/17/24 15:28 Pulse 76 07/17/24 15:28 Resp 18 07/17/24 15:28 BP 164/95 H 07/17/24 15:28 Pulse Ox 97 07/17/24 15:28 Course Vital Signs Vital signs: Vital Signs Temperature 98.0 F 07/17/24 15:28 Pulse Rate 76 07/17/24 15:28 Respiratory Rate 18 07/17/24 15:28 Blood Pressure 164/95 H 07/17/24 15:28 Pulse Oximetry 97 07/17/24 15:28 Temperature 98.0 F 07/17/24 15:28 Pulse Rate 76 07/17/24 15:28 Respiratory Rate 18 07/17/24 15:28 Blood Pressure 164/95 H 07/17/24 15:28 Pulse Oximetry 97 07/17/24 15:28 MDM - URI/Sore Throat MDM Narrative Medical decision making narrative: Discussed patient's presentation afebrile not hypoxic. Patient admits that he is out of his asthma medications at home requesting refill on inhaler and nebulizer vials. He does have his nebulizer machine. We discussed his cough, lung sounds and length of symptoms given his significant tobacco abuse we will place him on doxycycline and prednisone. We discussed medication compliance. He will contact his family doctor for follow-up later this week. A chest x-ray was offered but subsequently declined with the patient as he has had similar symptoms before and does not feel a chest x-ray is indicated, mutual discussion that this would not likely change clinical treatment with empiric treatment given presentation. Patient thankful he is also aware of influenza in the community but does not have any febrile symptoms since onset of symptoms on Thursday. Clinical history and exam most likely with asthmatic bronchitis/COPD exacerbation. Patient given prednisone 40 mg, DuoNeb treatment nebulized and doxycycline 100 mg p.o. here. [place] [facility] [place] The patient is to followup with primary care physician in next 2-3 days or to return to the emergency department should any of the signs or symptoms worsen or new symptoms develop. Patient had questions answered. The patient agrees with the following Diagnosis and Treatment plan and the patient will be discharged home. Differential Diagnosis Differential diagnosis: Likely upper respiratory infection, bronchitis, influenza and other (PE Less likely neg Well Criteria=0 ) Discharge Plan Discharge Chief Complaint: Upper Respiratory Infection Clinical Impression: Asthmatic bronchitis with exacerbation, Tobacco abuse, Upper respiratory infection Patient Disposition: Home, Self-Care Time of Disposition Decision: 15:38 Condition: Good Mode of Transportation: Private Vehicle Prescriptions / Home Meds: New doxycycline hyclate 100 mg capsule 100 mg PO BID 10 Days Qty: 20 0RF benzonatate 200 mg capsule 200 mg PO TID PRN (Reason: cough) Qty: 15 0RF albuterol sulfate 90 mcg/actuation HFA aerosol inhaler 2 inh inhalation Q6H PRN (Reason: shortness of breath or wheezing) Qty: 6.7 0RF albuterol sulfate 2.5 mg /3 mL (0.083 %) solution for nebulization 2.5 mg inhalation TID-QID PRN (Reason: shortness of breath or wheezing) Qty: 75 1RF prednisone 20 mg tablet 40 mg PO ONCE 5 Days Qty: 10 0RF No Action duloxetine [Cymbalta] 20 mg capsule,delayed release(DR/EC) 40 mg PO DAILY prazosin 2 mg capsule 2 mg PO DAILY buprenorphine-naloxone [Suboxone] 12-3 mg film 2 film buccal DAILY Rx Instructions: place 1 strip/tab under (each) side of tongue Print Language: Maori Instructions: Acute Bronchitis (ED), How to Use a Nebulizer (ED) Additional Instructions: Call PCP on Thursday for appt this week... Refills of asthma medication sent to pharmacy. Return to ER if symptoms worsen. Referrals: INES MAGDALENO [Primary Care Provider] - As soon as possible
[2024-07-17 15:49] VITALS: PULSE 84; O2SAT 95
[2024-07-17] MEDS: IPRATROPIUM/ALBUTEROL SULFATE 3 ML AMPUL.NEB IH (15:50)
[2024-07-17] MEDS: DOXYCYCLINE MONOHYDRATE 100 MG CAPSULE PO (16:12)
[2024-07-17] MEDS: PREDNISONE 20 MG TABLET 40 MG PO (16:12)
== END 2024-07-17 16:15 | disposition home or self-care (01) ==
PROVIDERS: Emergency Provider Emergency Medicine; PCP Internal Medicine
DX: J45.901 Unspecified asthma with (acute) exacerbation (principal); J06.9 Acute upper respiratory infection, unspecified; R06.02 Shortness of breath; J44.9 Chronic obstructive pulmonary disease, unspecified; F17.210 Nicotine dependence, cigarettes, uncomplicated
CPT/HCPCS: 94640; 99283; J7512